=== PATIENT | male | born 1960 | race Caucasian/White ===

== ENCOUNTER 2016-12-05 07:52 | Inpatient (IN) | payer MEDICARE ==
[2016-11-29 10:35] VITALS: BMI 29.4
[2016-11-29 11:58] VITALS: BP_SYST 126; RESP 16; TEMP 98.4
[2016-12-05] VITALS (16 sets, daily range): BP systolic 101–200; RESP 2–26; TEMP 96.9–99.9; Ht 162.6 cm; Wt 77.6 kg
[~2016-12-05] VITALS: Ht 162.6 cm; Wt 77.6 kg
[2016-12-05] MEDS ORDERED: CLINDAMYCIN 900 MG in DEXTROSE 5% 50 ML IV ONE (08:10)
[2016-12-05] MEDS ORDERED: LACT RINGERS 1,000 ML IV SCH (08:25)
[2016-12-05] MEDS ORDERED: GLYCOPYRROLATE 0.2 MG/ML VIAL IV ONE ×2 (08:25→14:22)
[2016-12-05] MEDS ORDERED: LIDOCAINE 1% BUFFERED 1 ML SYR INTRADERM PRN (08:25)
[2016-12-05] MEDS ORDERED: NEB-XOPENEX 0.63 MG/3 ML INH ONE (08:25)
[2016-12-05] MEDS ORDERED: MIDAZOLAM 2 MG/2 ML INJ IV ONE (08:25)
[2016-12-05] MEDS ORDERED: INDOCYANINE GREEN 25 MG VIAL IV ONE (08:35)
[2016-12-05] MEDS ORDERED: DILAUDID 1 MG/ML AMP IV ONE ×2 (08:40→14:22)
[2016-12-05] MEDS ORDERED: ONDANSETRON 4 MG VIAL IV PRN ×2 (09:40→10:40)
[2016-12-05] MEDS ORDERED: MEPERIDINE 25 MG/ML IV PRN (09:40)
[2016-12-05] MEDS ORDERED: MORPHINE 2 MG/ML SYR IV PRN (09:40)
[2016-12-05] MEDS ORDERED: OXYCODONE 5 MG TAB PO PRN (09:40)
[2016-12-05] MEDS ORDERED: DILAUDID 1 MG/ML AMP IV PRN (09:40)
[2016-12-05] MEDS ORDERED: SALINE FLUSH 10 ML FLUSH PRN (10:40)
[2016-12-05] MEDS ORDERED: GLUCAGON 1 MG VIAL IM PRN (10:40)
[2016-12-05] MEDS ORDERED: DEXTROSE 50% SYRINGE 50 ML IV PRN (10:40)
[2016-12-05] MEDS: METOPROLOL XL 25 MG TAB PO SCH (10:47)
[2016-12-05] MEDS: MORPHINE 4 MG/ML SYR IV PRN ×5 (11:03→22:38)
[2016-12-05] MEDS: SODIUM CHLORIDE 0.9% 1,000 ML IV SCH (12:19)
[2016-12-05] MEDS: OXYCODONE 5 MG TAB PO PRN ×2 (12:26→16:46)
[2016-12-05] MEDS ORDERED: DEXAMETHASONE 4 MG/ML VIAL IV ONE (14:22)
[2016-12-05] MEDS ORDERED: BUPIVACA/EPI 0.25% PF 30ML NERVEBLOCK ONE (14:22)
[2016-12-05] MEDS ORDERED: FENTANYL 100 MCG/2 ML AMP IV ONE (14:22)
[2016-12-05] MEDS ORDERED: NEOSTIGMINE 10 MG/10 ML VIAL IV ONE (14:22)
[2016-12-05] MEDS ORDERED: LIDOCAINE 2% SYR 5 ML IV ONE (14:22)
[2016-12-05] MEDS ORDERED: ROCURONIUM 50 MG VIAL IV ONE (14:22)
[2016-12-05] MEDS ORDERED: SUCCINYLCHOLINE 20 MG/ML VL IV ONE (14:22)
[2016-12-05] MEDS ORDERED: ACETAMINOPHEN 1,000 MG/100 ML IV ONE (14:22)
[2016-12-05] MEDS ORDERED: PROPOFOL 20 ML PER ML IV ONE (14:22)
[2016-12-05] MEDS ORDERED: ONDANSETRON 4 MG VIAL IV PUSH ONE (14:22)
[2016-12-05] MEDS: MORPHINE 2 MG/ML SYR IV PRN (14:25)
[2016-12-05] MEDS: SALINE FLUSH 10 ML FLUSH SCH (20:00)
[2016-12-05] MEDS: TAMSULOSIN 0.4 MG CAP PO SCH (20:02)
[2016-12-06] MEDS: MORPHINE 4 MG/ML SYR IV PRN ×9 (02:37→23:31)
[2016-12-06 03:53] VITALS: BP_SYST 148; RESP 18; TEMP 98.7
[2016-12-06] MEDS: SODIUM CHLORIDE 0.9% FLUSH BAG 500 ML IV SCH (05:41)
[2016-12-06] MEDS: SODIUM CHLORIDE 0.9% 1,000 ML IV SCH (06:02)
[2016-12-06 07:49] VITALS: BP_SYST 122; RESP 18; TEMP 99
[2016-12-06] MEDS: METOPROLOL XL 25 MG TAB PO SCH (08:32)
[2016-12-06] MEDS: SALINE FLUSH 10 ML FLUSH SCH ×2 (08:33→19:48)
[2016-12-06] MEDS ORDERED: oxyCODONE 5 MG/5 ML PO PRN (10:55)
[2016-12-06 12:15] VITALS: BP_SYST 154; RESP 20; TEMP 98.9
[2016-12-06] MEDS: OXYCODONE 5 MG TAB PO PRN ×2 (12:34→21:05)
[2016-12-06 16:22] VITALS: BP_SYST 156; RESP 18; TEMP 98.4
[2016-12-06] MEDS: TAMSULOSIN 0.4 MG CAP PO SCH (19:48)
[2016-12-06 20:05] VITALS: BP_SYST 137; RESP 20; TEMP 98.7
[2016-12-06 23:32] VITALS: BP_SYST 145; RESP 20; TEMP 99.9
[2016-12-07] MEDS: MORPHINE 4 MG/ML SYR IV PRN ×3 (02:03→07:56)
[2016-12-07 05:05] VITALS: BP_SYST 133; RESP 20; TEMP 98.7
[2016-12-07] MEDS: OXYCODONE 5 MG TAB PO PRN ×2 (05:13→09:34)
[2016-12-07] MEDS: SODIUM CHLORIDE 0.9% 1,000 ML IV SCH (05:46)
[2016-12-07] MEDS: SODIUM CHLORIDE 0.9% FLUSH BAG 500 ML IV SCH (05:46)
[2016-12-07 07:27] VITALS: BP_SYST 142; RESP 16; TEMP 98.6
[2016-12-07] MEDS: SALINE FLUSH 10 ML FLUSH SCH (07:58)
[2016-12-07] MEDS: METOPROLOL XL 25 MG TAB PO SCH (09:33)
[2016-12-07] MEDS: MORPHINE 2 MG/ML SYR IV PRN (10:09)
[2016-12-07 10:25] VITALS: BP_SYST 117; RESP 16; TEMP 98.3
[2016-12-07 12:31] VITALS: BP_SYST 117; RESP 16; TEMP 98.3
== END 2016-12-07 14:16 | disposition home or self-care (01) | DRG 419 ==
LOC: ENRESERVDT → ENRESERVTM → OSEC 07:52 → 5THW 12:05 → ENPENDDIS 12-06 09:56 → OSEC 12-06 10:06
PROVIDERS: ADMIT Surgery; ATTEND Surgery
PROC: 0FT44ZZ Resection of Gallbladder, Percutaneous Endoscopic Approach (ICD-10-PCS; principal; 2016-12-05 09:22)
DX: K85.10 Biliary acute pancreatitis without necrosis or infection (principal); I48.91 Unspecified atrial fibrillation; I10 Essential (primary) hypertension; Z95.0 Presence of cardiac pacemaker; F17.200 Nicotine dependence, unspecified, uncomplicated; Z86.718 Personal history of other venous thrombosis and embolism; H54.8 Legal blindness, as defined in USA; E11.9 Type 2 diabetes mellitus without complications
CPT/HCPCS: 36415; 80053; 82150; 82947; 83690; 85025; 87493; 88304; 93005; 94640; 94799